=== PATIENT | male | born 1990 | race Caucasian/White ===

== ENCOUNTER 2021-01-29 11:07 | Emergency (ER) | payer OTHER, SELFPAY ==
[2021-01-29 11:24] VITALS: BP 133/75; PULSE 68; RESP 20; TEMP 36.1; O2SAT 98
--- NOTE | 2021-01-29 12:08 | ED.GENADULT ---
HPI - General Adult General Chief complaint: Unspecified Stated complaint: NEW MEDS, POOR APPETITE Time Seen by Provider: 01/29/21 11:57 History of Present Illness HPI narrative: Patient is a 30-year-old male who presents ER with nausea and sweats. Patient reports symptoms began after starting Suboxone in the last 10 days. Reports he has not been wanting to eat and has had poor fluid intake. If he does eat something he will vomit. He is having no documented fevers but does get sweats occasionally some chills. No known sick contacts. Reports he feels very fatigued and does not want to get out of bed. He is also recently been started on hydroxyzine and trazodone. He is unsure if those medications are causing some of his fatigue as well. Denies chest pain or chest pressure. No sinus congestion with sore throat or productive cough. No urinary symptoms. He is without diarrhea. Related Data Home Medications Medication Instructions Recorded Confirmed buprenorphine-naloxone film 01/29/21 dextroamphetamine-amphetamine PO 01/29/21 hydroxyzine HCl 01/29/21 trazodone 01/29/21 Allergies Allergy/AdvReac Type Severity Reaction Status Date / Time No Known Allergies Allergy Verified 01/29/21 11:32 Review of Systems Review of Systems: All systems reviewed & are unremarkable except as noted in HPI and below Constitutional: Constitutional: Denies body ache(s), Reports chills, Reports fatigue, Denies fever(s), Reports lethargy and Reports other (Sweats) Respiratory: Respiratory: Denies cough and Denies dyspnea Gastrointestinal: Gastrointestinal: Denies abdominal pain, Denies diarrhea, Reports nausea and Reports vomiting Musculoskeletal: Musculoskeletal: Denies myalgias Neurologic: Comments: Occasional jerking movements of his legs. PMFSH Past Medical History Medical History (Updated 01/29/21 @ 14:07 by Aamir Talamantes MD) Healthy adult male Surgical History Surgical History (Updated 01/29/21 @ 12:11 by Aamir Talamantes MD) No pertinent past surgical history Social History Social History (Updated 08/16/19 @ 19:19 by Maximo Darling PA-C) Smoking status: Never smoker Gender identity (if verbalized by the patient): Male Exam Narrative: Exam Narrative: GENERAL: Well-appearing, well-nourished, and in no acute distress. HEAD: Normocephalic, atraumatic. EYES: PERRL and EOMI. CHEST: Clear to auscultation. No respiratory distress. HEART: Regular rate and rhythm. Normal peripheral pulses. Abdomen: Soft, nondistended, nontender. EXTREMITIES: Normal range of motion. No edema. SKIN: Warm, dry, no rash. NEURO: Alert and oriented x3. PSYCH: Normal mood and affect. Course Course Emergency Course: Feels improved status post IV fluid. Abdominal exam continues to be benign. Discharge home. May have a GI illness causing nausea and fatigue. Will give antiemetics for home. Vital Signs Vital signs: Vital Signs Temperature 97.0 F L 01/29/21 11:24 Pulse Rate 68 01/29/21 11:24 Respiratory Rate 20 01/29/21 11:24 Blood Pressure 133/75 01/29/21 11:24 Pulse Oximetry 98 01/29/21 11:24 Temperature 97.0 F L 01/29/21 11:24 Pulse Rate 68 01/29/21 11:24 Respiratory Rate 20 01/29/21 11:24 Blood Pressure 133/75 01/29/21 11:24 Pulse Oximetry 98 01/29/21 11:24 Medical Decision Making Vital Signs Vital Signs: Vital Signs Temperature 97.0 F L 01/29/21 11:24 Pulse Rate 68 01/29/21 11:24 Respiratory Rate 20 01/29/21 11:24 Blood Pressure 133/75 01/29/21 11:24 Pulse Oximetry 98 01/29/21 11:24 Temperature 97.0 F L 01/29/21 11:24 Pulse Rate 68 01/29/21 11:24 Respiratory Rate 20 01/29/21 11:24 Blood Pressure 133/75 01/29/21 11:24 Pulse Oximetry 98 01/29/21 11:24 Lab Data Result diagrams: 01/29/21 12:13 01/29/21 12:14 Labs: Lab Results 01/29/21 01/29/21 01/29/21 Range/Units 12:13 12:13 12:14 WBC 12.4 H
[2021-01-29] MEDS: SODIUM CHLORIDE 0.9% IV 1,000 ML 999 ML IV CONT (12:15)
[2021-01-29] MEDS: ONDANSETRON INJ 4 MG/2 ML VIAL IV PUSH (12:15)
[2021-01-29 12:20] LABS: Basophils Absolute Auto 0.1 K/mm3 (0.0-0.1); Basophils Percent Auto 0.7 % (0.2-1.2); Eosinophils Absolute Auto 0.3 K/mm3 (0-0.3); Eosinophils Percent Auto 2.2 % (0-4.4); Hematocrit 49.4 % (42.0-52.0); Hemoglobin 16.4 g/dL (14.0-18.0); Immature Granulocyte Absolute 0.02 K/mm3 (0.00-0.031); Immature Granulocyte Percent A 0.2 % (0-0.5); Lymphocytes Absolute Auto 1.89 K/mm3 (0.9-3.2); Lymphocytes Percent Auto 15.3 % (18.3-44.2); Mean Corpuscular HGB Conc 33.2 g/dl (32-36); Mean Corpuscular Hemoglobin 28.6 pg (26-34); Mean Corpuscular Volume 86.1 fl (80-100); Mean Platelet Volume 9.7 fl (7.4-10.4); Monocytes Absolute Auto 0.6 K/mm3 (0.1-0.6); Monocytes Percent Auto 4.7 % (2.6-8.5); Neutrophils Absolute Auto 9.5 K/mm3 (1.3-6.7); Neutrophils Percent Auto 76.9 % (45.5-73.1); Platelet Count Result 428 k/mm3 (150-375); Red Blood Count 5.74 M/mm3 (4.6-6.20); Red Cell Distribution Width 12.5 % (11.5-14.5); White Blood Count 12.4 K/mm3 (4.5-10.0)
[2021-01-29 12:30] LABS: Anion Gap 8 mmol/L (8-16); Blood Urea Nitrogen 18 mg/dL (9-20); Calcium 10.2 mg/dL (8.4-10.2); Carbon Dioxide 30 mmol/L (22-30); Chloride 100 mmol/L (98-107); Estimated CRCL calculation 97 ml/min; Estimated Glomerular Filt Rate > 60; Glucose 93 mg/dL (75-110); Potassium 4.7 mmol/L (3.4-5.0); Sodium 138 mmol/L (137-145)
== END 2021-01-29 14:16 | disposition home or self-care (01) ==
PROVIDERS: Emergency Provider Emergency Medicine
DX: R11.0 Nausea (principal)
CPT/HCPCS: 36415; 80048; 84443; 85025; 96361; 96374; 99284; J2405; J7030

== ENCOUNTER 2023-01-05 19:29 | Emergency (ER) | payer OTHER, SELFPAY ==
[2023-01-05] VITALS (7 sets, daily range): BP systolic 103–143; BP diastolic 75–108; PULSE 87–101; RESP 15–25; TEMP 36.8; O2SAT 97–100
--- NOTE | ~2023-01-05 | XR_ITS ---
EXAMINATION: XR chest 1V portable DATE: 01/05/2023 21:02 INDICATION: Overdose post Narcan TECHNIQUE: frontal view of the chest was obtained. COMPARISON: None FINDINGS: The lungs are clear with no focal airspace opacities, pulmonary edema, pleural effusion or pneumothor ax. The cardiomediastinal silhouette is normal. Visualized bones and soft tissues are unremarkable. IMPRESSION: 1. Normal chest radiograph. Reviewed, dictated and finalized at location A. IMPRESSION: 1. Normal chest radiograph.
--- NOTE | 2023-01-05 20:14 | PC.NURSE ---
Pt arrived to ED via EMS and was being inappropriate towards staff. Pt made several comments toward women staff such as let me take you to the gun show and flexing his bicep. Asking for $20 bills. pt also kept commenting about how beautiful staff was and who the prettiest ones were. Pt was asked to stop and he stated Well you must be the mean one . RN went back into pt room to apply O2 monitor back onto pt finger and pt stated, I have long fingers, I bet my finger is longer than your boyfriends brendan . RN left room.
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
[2023-01-05] MEDS: SODIUM CHLORIDE 0.9% IV 1,000 ML 999 ML IV CONT (21:04)
[2023-01-05 21:09] LABS: Basophils Absolute Auto 0.1 K/mm3 (0.0-0.1); Basophils Percent Auto 1.1 % (0.2-1.2); Eosinophils Absolute Auto 0.4 K/mm3 (0-0.3); Eosinophils Percent Auto 4.6 % (0-4.4); Hematocrit 43.9 % (42.0-52.0); Hemoglobin 14.6 g/dL (14.0-18.0); Immature Granulocyte Absolute 0.01 K/mm3 (0.00-0.031); Immature Granulocyte Percent A 0.1 % (0-0.5); Lymphocytes Absolute Auto 2.79 K/mm3 (0.9-3.2); Lymphocytes Percent Auto 33.7 % (18.3-44.2); Mean Corpuscular HGB Conc 33.3 g/dl (32-36); Mean Corpuscular Hemoglobin 29.5 pg (26-34); Mean Corpuscular Volume 88.7 fl (80-100); Mean Platelet Volume 9.6 fl (7.4-10.4); Monocytes Absolute Auto 0.6 K/mm3 (0.1-0.6); Neutrophils Absolute Auto 4.4 K/mm3 (1.3-6.7); Neutrophils Percent Auto 53.5 % (45.5-73.1); Platelet Count Result 416 k/mm3 (150-375); Red Blood Count 4.95 M/mm3 (4.6-6.20); Red Cell Distribution Width 14.1 % (11.5-14.5); White Blood Count 8.3 K/mm3 (4.5-10.0)
[2023-01-05 21:23] LABS: Alanine Aminotransferase 49 U/L (6-50); Albumin Level 5.3 g/dL (3.5-5.1); Alkaline Phosphatase 51 U/L (38-126); Anion Gap 10 mmol/L (8-16); Aspartate Amino Transferase 54 U/L (17-59); Bilirubin,Total 0.5 mg/dL (0.2-1.3); Blood Urea Nitrogen 11 mg/dL (9-20); Calcium 9.1 mg/dL (8.4-10.2); Carbon Dioxide 28 mmol/L (22-30); Chloride 105 mmol/L (98-107); Estimated CRCL calculation 117 ml/min; Estimated Glomerular Filt Rate > 60; Glucose 96 mg/dL (65-110); Sodium 143 mmol/L (137-145)
[2023-01-05 21:26] LABS: Barbiturate Screen Urine Negative (Negative); Benzodiazepines Screen Urine Positive (Negative)
[2023-01-05 21:31] LABS: Cannabinoid Screen Urine Positive (Negative); Cocaine Screen Urine Negative (Negative); Opiate Screen Urine Negative (Negative); Phencyclidine Screen Urine Negative (Negative)
--- NOTE | 2023-01-05 21:40 | PC.NURSE ---
Patient yelling in room, and demanding to see a doctor. This nurse goes into room and patient has ripped his IV out and patient states he is leaving, patient slurring his words and stating I am leaving!! I want to leave, I want to talk to the doctor! I have been yelling for hours! I need to fucking leave! I don't want to be here! Patient informed that he is not the only patient in the ER and that he is being disrespectful to staff and other patients. Patient then gets in this nurses face and starts to yell get the fuck out of my way! I'm leaving, I have been yelling to see someone! This nurse informs patient that this nurse was in another room and he needs to calm down. Patient continues to yell and slur his words and states get the fuck out of my way! 2 other nurses and charge nurse arrive to room and call security. Patient continues to escalate and get more aggressive. Patient attempts to swing at glass finisher. Security arrives at bedside at 214. This nurse calls patients mother per glass finisher request, she was called at 215, Eli, patients mother states she will come back. Patient continues to yell and be aggressive towards staff and security. Patient attempts to hit and kick security as well as lunges himself at security and patient assisted to the stretcher. glass finisher aware and calls PD and PD arrives. VORB at 2155 ERP arrives at bedside and gives order to give 10mg IM haldol and 4point restraints. Patient continues to be aggressive and thrashing in the bed. Patients family arrives in the waiting room at 2200.
[2023-01-05 21:54] LABS: Amphetamine Screen Urine Negative (Negative); Methadone Screen Urine Negative (Negative)
[2023-01-05] MEDS: HALOPERIDOL LACTATE 5 MG/ML VIAL 10 MG IM (21:55)
[2023-01-05] MEDS: LORazepam INJ (*CRX) 2 MG/ML VIAL IV PUSH (22:12)
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
[2023-01-05 22:30] LABS: Ethanol 433 mg/dL (<10)
--- NOTE | 2023-01-05 23:48 | PC.NURSE ---
2320 Patients family given update. Patients mother, Eli states patient does not take any prescription medications and has been known to abuse xanax. Patients family state they will go home and to please call with updates.
[2023-01-06] VITALS (18 sets, daily range): BP systolic 102–132; BP diastolic 68–92; PULSE 70–91; RESP 9–16; O2SAT 96–100
--- NOTE | 2023-01-06 01:16 | PC.NURSE ---
0115 Patient taken out of restraints. Patient on boat designer. Patient cooperative at this time. Patient resting on stretcher, call light in reach.
== END 2023-01-06 07:10 | disposition home or self-care (01) ==
PROVIDERS: Emergency Provider Emergency Medicine
DX: F10.129 Alcohol abuse with intoxication, unspecified (principal); Y90.8 Blood alcohol level of 240 mg/100 ml or more
CPT/HCPCS: 36415; 71045; 80053; 80307; 85025; 96361; 96372; 96374; 99284; J1630; J2060; J7030

== ENCOUNTER 2024-02-03 00:57 | Emergency (ER) | payer OTHER, SELFPAY ==
[2024-02-03] VITALS (17 sets, daily range): BP systolic 111–135; BP diastolic 60–109; PULSE 76–117; RESP 12–24; TEMP 36.3; O2SAT 96–100
--- NOTE | 2024-02-03 00:58 | ECG_ITS ---
SEE SCANNED COPY FOR CONFIRMED REPORT MTDD
[2024-02-03 01:17] LABS: Basophils Absolute Auto 0.1 K/mm3 (0.0-0.1); Basophils Percent Auto 0.7 % (0.2-1.2); Eosinophils Absolute Auto 0.2 K/mm3 (0-0.3); Eosinophils Percent Auto 3.1 % (0-4.4); Hematocrit 42.2 % (42.0-52.0); Hemoglobin 14.2 g/dL (14.0-18.0); Immature Granulocyte Absolute 0.01 K/mm3 (0.00-0.031); Immature Granulocyte Percent A 0.1 % (0-0.5); Lymphocytes Absolute Auto 2.63 K/mm3 (0.9-3.2); Lymphocytes Percent Auto 37.2 % (18.3-44.2); Mean Corpuscular HGB Conc 33.6 g/dl (32-36); Mean Corpuscular Hemoglobin 28.5 pg (26-34); Mean Corpuscular Volume 84.6 fl (80-100); Mean Platelet Volume 9.5 fl (7.4-10.4); Monocytes Absolute Auto 0.4 K/mm3 (0.1-0.6); Monocytes Percent Auto 5.8 % (2.6-8.5); Neutrophils Absolute Auto 3.8 K/mm3 (1.3-6.7); Neutrophils Percent Auto 53.1 % (45.5-73.1); Platelet Count Result 407 k/mm3 (150-375); Red Blood Count 4.99 M/mm3 (4.6-6.20); Red Cell Distribution Width 13.9 % (11.5-14.5); White Blood Count 7.1 K/mm3 (4.5-10.0)
[2024-02-03 01:28] LABS: Alanine Aminotransferase 20 U/L (6-50); Albumin Level 4.8 g/dL (3.5-5.1); Alkaline Phosphatase 46 U/L (38-126); Anion Gap 11 mmol/L (4-12); Aspartate Amino Transferase 25 U/L (17-59); Bilirubin,Total 0.6 mg/dL (0.2-1.3); Blood Urea Nitrogen 8 mg/dL (9-20); Calcium 9.3 mg/dL (8.4-10.2); Carbon Dioxide 23 mmol/L (22-30); Chloride 107 mmol/L (98-107); Estimated CRCL calculation 116 ml/min; Estimated Glomerular Filt Rate > 60; Glucose 110 mg/dL (65-110); Potassium 3.4 mmol/L (3.4-5.0); Sodium 141 mmol/L (137-145)
--- NOTE | 2024-02-03 04:29 | ED.SYNCOPE ---
HPI - Syncope General Chief Complaint: Syncope Stated Complaint: syncope episode, out for 10-15 sec, A&Ox4 Time Seen by Provider: 02/03/24 04:17 Source: patient Limitations: no limitations History of Present Illness HPI narrative: Patient is a 33-year-old male presents to the emergency department complaining of a syncopal episode. Patient notes he was home and resting when just prior to arrival he stood up to get a drink and had a syncopal episode, notes that his mother was home but is unsure event witnessed a, denies any seizure activity being reported, denies any history of seizures, denies use of blood thinners, denies any numbness or weakness, notes that he came back to promptly, denies history of syncope in the past, denies urinary incontinence or stool incontinence, denies biting his tongue. Patient admits to consuming a few beers earlier in the day yesterday and also uses occasional pain medication for his chronic back pain and also smokes marijuana. Patient denies history of abnormal heart rhythms. Patient denies chest pain, difficulty breathing, abdominal pain, nausea, vomiting, diarrhea, melena, hematochezia. Related Data Home Medications Medication Instructions Recorded Confirmed buprenorphine 12 mg-naloxone 3 mg film 01/29/21 sublingual film dextroamphetamine-amphetamine ER PO 01/29/21 30 mg 24hr capsule,extend release hydroxyzine HCl 50 mg tablet 01/29/21 trazodone 100 mg tablet 01/29/21 Allergies Allergy/AdvReac Type Severity Reaction Status Date / Time No Known Allergies Allergy Verified 02/03/24 01:23 Review of Systems Review of Systems: All systems reviewed & are unremarkable except as noted in HPI and below PMFSH Past Medical History Medical History Healthy adult male Surgical History Surgical History No pertinent past surgical history Social History Social History Smoking status: Never smoker Gender identity (if verbalized by the patient): Male Comments At time of signature, I have reviewed and agree with nursing past medical, surgical, social and family history unless otherwise noted. Please see the nursing chart for further information. There is no relevant family history pertinent to the presenting complaint. Exam Narrative: CONST: No acute distress. Well nourished. HENMT: Head is normocephalic and atraumatic. Tacky mucous membranes. No posterior oropharynx erythema. EYES: No conjunctival icterus, injection, or pallor. PERRL. NECK: No meningeal signs. No carotid bruits bilaterally. RESP: Able to speak in full sentences. Normal respiratory effort. CTAB. CARDIO: Regular rate. Regular rhythm. 2+ DP and radial pulses bilaterally. GI: Nondistended. No tenderness to palpation. Soft. : No CVA tenderness to palpation. SKIN: No rashes or lesions noted on exposed skin. NEURO: Oriented x3. Moves all extremities. No focal neurological deficits. EXTREM/MSK/BACK: No pedal edema. PSYCH: Normal affect. Course Vital Signs Vital signs: Vital Signs Temperature 97.3 F L 02/03/24 00:59 Pulse Rate 117 H 02/03/24 00:59 Respiratory Rate 20 02/03/24 00:59 Blood Pressure 135/109 H 02/03/24 00:59 Pulse Oximetry 98 02/03/24 00:59 Oxygen Delivery Room Air 02/03/24 00:59 Temperature 97.3 F L 02/03/24 00:59 Pulse Rate 79 02/03/24 04:15 Respiratory Rate 12 02/03/24 04:15 Blood Pressure 111/65 02/03/24 02:01 Pulse Oximetry 98 02/03/24 02:45 Oxygen Delivery Room Air 02/03/24 00:59 MDM - Syncope MDM Narrative Medical decision making narrative: Patient presents with the above complaint. Initial vitals are remarkable for tachycardia. Physical examination as noted above. Plan discussed: Laboratory analysis, EKG, chest x-ray, IV fluids, Tylenol, continues cardiac mo
--- NOTE | 2024-02-03 04:43 | PC.NURSE ---
Patient came to nursing station, requested to talk on the phone. Patient got off phone and stated I am leaving, which way is out of here. Patient pointed in direction of waiting room by varnishing unit operator. Patient ambulated out of the ED to the waiting room with a steady unassisted gait with his personal belongings in hand. Patient left before risks of leaving before more testing could be done and benefits of staying. Patient marked as left/elopement after seen by provider. pipeline technician aware. No IV was placed.
== END 2024-02-03 04:49 | disposition left against medical advice (07) ==
PROVIDERS: Emergency Provider Student in an Organized Health Care Education/Training Program
DX: R55 Syncope and collapse (principal); R94.31 Abnormal electrocardiogram [ECG] [EKG]
CPT/HCPCS: 36415; 80053; 85025; 93005; 99284